=== PATIENT | male | born 1955 | race African-American/Black ===

== ENCOUNTER 2016-08-13 14:01 | Emergency (ER) | payer OTHER | END 2016-08-13 15:26 | disposition home or self-care (01) | LOC: FASTR 14:01 | CPT/HCPCS: 96372 ==

== ENCOUNTER 2016-08-24 20:41 | Emergency (ER) | payer OTHER ==
[2016-08-24] MEDS ORDERED: KETOROLAC 60 MG/2 ML VIAL IM ONE (21:22)
[2016-08-24] MEDS ORDERED: DILAUDID 1 MG/ML AMP ONE (21:22)
== END 2016-08-24 22:59 | disposition home or self-care (01) ==
LOC: ER 20:41
DX: S39.012A Strain of muscle, fascia and tendon of lower back, initial encounter (principal); X50.1XXA Overexertion from prolonged static or awkward postures, initial encounter; Y93.89 Activity, other specified; Y92.69 Other specified industrial and construction area as the place of occurrence of the external cause; M51.36 Other intervertebral disc degeneration, lumbar region; M16.7 Other unilateral secondary osteoarthritis of hip; Z79.82 Long term (current) use of aspirin; Z79.899 Other long term (current) drug therapy; F17.210 Nicotine dependence, cigarettes, uncomplicated
CPT/HCPCS: 72100; 73502; 96372; 99284; J1170

== ENCOUNTER 2016-09-11 13:27 | Emergency (ER) | payer OTHER ==
[2016-09-11] MEDS ORDERED: KETOROLAC 60 MG/2 ML VIAL IM ONE (14:06)
== END 2016-09-11 14:42 | disposition home or self-care (01) ==
LOC: ER 13:27
DX: M51.36 Other intervertebral disc degeneration, lumbar region (principal); Z79.82 Long term (current) use of aspirin; Z79.899 Other long term (current) drug therapy; F17.210 Nicotine dependence, cigarettes, uncomplicated
CPT/HCPCS: 96372